=== PATIENT | female | born 1990 | race Caucasian/White ===

== ENCOUNTER 2021-11-09 05:46 | Emergency (ER) | payer OTHER, SELFPAY ==
[2021-11-09 06:02] VITALS: BP 134/88; PULSE 97; RESP 16; TEMP 36.1; O2SAT 97; BMI 23.8
[2021-11-09 06:29] LABS: COVID-19 Test Negative (Negative); IDNOW Serial# 16C4AD1C; Influenza A Negative (Negative); Influenza B2 Negative (Negative)
== END 2021-11-09 10:29 | disposition left against medical advice (07) ==
PROVIDERS: Emergency Medicine; Emergency Provider Emergency Medicine
DX: R51.9 Headache, unspecified (principal); R53.1 Weakness; Z20.822 Contact with and (suspected) exposure to COVID-19
CPT/HCPCS: 87502; 87635; 99283

== ENCOUNTER 2021-12-13 15:57 | Emergency (ER) | payer OTHER, SELFPAY ==
[2021-12-13 16:37] VITALS: BP 122/80; PULSE 90; RESP 18; TEMP 36.3; O2SAT 98; BMI 24.7
[2021-12-13 19:16] VITALS: BP 142/93; PULSE 80; RESP 18; TEMP 36.2; O2SAT 99
--- NOTE | 2021-12-13 19:34 | ED.HA ---
HPI - Headache General Chief Complaint: Headache Stated Complaint: headache Time Seen by Provider: 12/13/21 19:18 Source: patient Mode of arrival: ambulatory Limitations: no limitations History of Present Illness HPI Narrative: 31-year-old female who presents emergency department for evaluation of headache since Saturday (3 days). The patient's headache started 3 days prior after she got out of work. She states the headache came on gradually. She describes the headache as a squeezing sensation around the back of her head. She states the pain is been constant but waxes and wanes in intensity. She states that today the headache was 10/10. The patient has had nausea and she states that she has been vomiting as well specially after eating. She states that over the last 24 hours she has had very little for fluid to drink and has not had any food to eat. Patient is experiencing photophobia and phonophobia. She states she has a history of migraines but this headache seems to be different than her migraine headache since her migraines are usually located on 1 side or the other and not a back of her head. The patient took Tylenol 4 times today with no relief for pain. She denied fever, chills, rhinorrhea, sore throat, cough, chest pain, shortness of breath, dyspnea on exertion. She states she has had abdominal pain after eating and this is caused her to vomit. She states that she is feeling generally weak from not eating and drinking which she denies localized weakness. She states she experiences intermittent numbness in both for fingers chronically and this is not worse with her recent headache. MD elicited complaint: headache Pertinent past history: migraines Onset (ago): day(s) (3) Onset description: gradually Location: occipital Severity: severe Pain scale (0-10): 10 Quality & Timing: squeezing Exacerbating factors: none Relieving factors: nothing Context: other (Started 3 days prior after she got out of work) Associated symptoms: nausea, vomiting, photophobia, sensitivity to sound and weakness (General) Treatments prior to arrival: acetaminophen Related Data Previous Rx's Medication Instructions Recorded metoclopramide HCl 10 mg tablet 10 mg PO Q6H PRN nausea and 12/13/21 (Reglan) vomiting #14 tabs Allergies Allergy/AdvReac Type Severity Reaction Status Date / Time No Known Allergies Allergy Verified 11/09/21 06:05 Review of Systems Review of Systems: Yes all other systems are reviewed and are negative [facility] Past Medical History Attestation statement: The following information was validated with the patient. [facility] Narrative: Past medical history: GERD, migraines. Past surgical history: Tonsillectomy, left carpal tunnel release social history: She smokes 5-10 cigarettes per day times 19 years. She occasionally drinks alcohol. She denies drug use. Social History Social History Patient Tobacco Use Status: Current everyday Tobacco user Smoked in Last 30 Days: Yes Use of substances other than those prescribed or required for medical reasons: No Advance Directives: No Physical Exam Vital Signs: Vital Signs: Last Vital Signs Temp 97.2 F 12/13/21 19:16 Pulse 80 12/13/21 19:16 Resp 18 12/13/21 19:16 BP 142/93 H 12/13/21 19:16 Pulse Ox 99 12/13/21 19:16 O2 Del Method 12/13/21 19:16 BMI result Body Mass Index 24.7 Const: General: cooperative and no acute distress Orientation/consciousness: oriented to person and oriented to place Limitations: no limitations HEENT: Head: Yes normal to inspection, Yes normocephalic and Yes atraumatic Ears: external ears normal General nose exam: Normal external nose present Face and sinus: Yes normal facial exam Mouth: Normal oral and palatal mucosa present Throat: Yes posterior oropharynx normal Eyes: General: appearance normal, both eyes and all related structures Pupils: Equal, round and reactive pupils present Neck: Neck: Yes normal visual inspection, Yes no lymphadenopathy, Yes trachea midline and Yes supple Chest: Chest palpation & inspection: normal inspection of the chest and normal palpation of entire chest wall Resp: Effort & Inspection: normal respiratory effort and able to speak in complete sentences Auscultation: clear to auscultation bilaterally Cardio: Rate: regular rate Rhythm: regular rhythm Heart sounds: S1 normal heart sound present, S2 normal heart sound present and no murmurs GI: Inspection: Yes normal to inspection Palpation (GI): Soft to palpation, nontender and no guarding Auscultation: normal bowel sounds : General: Yes no CVA tenderness Back/Spine/Pelvis: Back: no CVA tenderness Skin: General skin exam: no rashes or lesions noted Neuro: General: oriented to person and oriented to place Cranial nerves: Yes CN's II-XII intact bilaterally and Yes Equal, round and reactive pupils present Cognition (Neuro): normal cognition Motor exam (neuro): 5/5 motor strength present throughout Extrem: General: Yes normal to inspection Psych: Appearance: grossly normal Speech and movement: Normal speech and movement present Affect: normal affect Attitude: cooperative Thought process: Normal thought process present Thought content: Normal thought content present Course Course Course Narrative: 31-year-old female who presents emergency department for evaluation of constant, squeezing, occipital, headache x3 days which waxes and wanes in intensity and is currently 10/10. She has had associated nausea, poor food intake secondary to vomiting and poor fluid intake. She complains of generalized weakness with no localizing symptoms. The patient does have a history of migraines but this headache is in a different location in her usual migraines. Initial vital signs were unremarkable, repeat BP at 19/16 was 142/93. Physical examination was unremarkable with a normal neurologic exam, and no significant tenderness palpation over the patient's latter day regions. Patient's presentation is most likely consistent with her migraine syndrome. Patient was ordered to get normal saline IV x1 L. She was also ordered to get Reglan 10 mg IV and Toradol 30 mg IV. 2128: The patient's headache is completely resolved. The patient will be discharged home with the following migraine regimen every 6 hours: Reglan 10 mg, Benadryl 50 mg and Excedrin migraine 1 pill orally. The patient was instructed that after taking this medication she should lie down in a dark quiet room and that she cannot drive or work after she takes his medicine since the medications will cause drowsiness. Discharge Plan Discharge Clinical Impression: Acute dehydration Migraine Qualifiers: Migraine type: without aura Status migrainosus presence: without status migrainosus Intractability: not intractable Qualified Code(s): G43.009 - Migraine without aura, not intractable, without status migrainosus Patient Disposition: Home, Self-Care Additional Instructions: Migraine discharge instructions: Your symptoms are consistent with a migraine. I want you to take the following 3 medications together every 6 hours as needed for headache, nausea or vomiting. Reglan (metoclopramide) in 10 mg, 1 pill Benadryl 25 mg, 2 pills Excedrin migraine, 1 pills. After you take these medications, lie down in a dark quiet room and try to fall asleep. These medications will make you sleepy, do not drive or work after taking these medications. Follow-up with your doctor in 2 days. Please return to the emergency department if your symptoms get worse or if you develop any symptoms that are concerning to you. Please see the work note. Prescriptions: New metoclopramide HCl [Reglan] 10 mg tablet 10 mg PO Q6H PRN (Reason: nausea and vomiting) Qty: 14 0RF Stand Alone Forms: Work/School Release
[2021-12-13] MEDS: 0.9 % Sodium Chloride 1,000 ML 999 ML IV (19:57)
[2021-12-13] MEDS: Metoclopramide HCl 10 MG/2 ML VIAL IVPUSH (20:00)
[2021-12-13] MEDS: Ketorolac Tromethamine 15 MG/ML VIAL 30 MG IVPUSH (20:00)
== END 2021-12-13 21:46 | disposition home or self-care (01) ==
PROVIDERS: Emergency Provider Emergency Medicine Emergency Medical Services
DX: G43.009 Migraine without aura, not intractable, without status migrainosus (principal); E86.0 Dehydration; R11.2 Nausea with vomiting, unspecified
CPT/HCPCS: 96361; 96374; 96375; 99284; J1885; J2765